=== PATIENT | female | born 2000 | race Caucasian/White ===

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

== ENCOUNTER 2024-07-15 14:56 | Emergency (ER) | payer MEDICAID, OTHER ==
[~2024-07-15] VITALS: Ht 160 cm; Wt 47.6 kg
[2024-07-15 15:05] VITALS: O2SAT 99
[2024-07-15 15:44] LABS: CLARITY URINE CLOUDY (CLEAR); COLOR URINE DARK YELLOW (YELLOW); GLUCOSE URINE NEGATIVE (NEGATIVE); KETONES URINE NEGATIVE (NEGATIVE); LEUKOCYTE ESTERASE URINE 3+ (NEGATIVE); NITRITE URINE POSITIVE (NEGATIVE); OCCULT BLOOD URINE 2+ (NEGATIVE); PH URINE 7.5 (4.5-8.0); PROTEIN URINE TRACE (NEGATIVE); SPECIFIC GRAVITY URINE 1.015 (1.005-1.030)
[2024-07-15 15:55] LABS: BACTERIA URINE 1+; SQUAMOUS EPITHELIAL CELL URINE 1+ /lpf (RARE/1+)
[2024-07-15] MEDS ORDERED: NITR-87 MT (17:06)
[2024-07-15 17:14] VITALS: BP 99/56; PULSE 65; RESP 16; TEMP 36.5; O2SAT 100
== END 2024-07-15 17:24 | disposition home or self-care (01) ==
LOC: ER 14:56
DX: N39.0 Urinary tract infection, site not specified (principal)
CPT/HCPCS: 81003; 99283